=== PATIENT | female | born 1985 | race Two or more races ===

== ENCOUNTER 2019-03-28 20:12 | Inpatient (IN) | payer OTHER ==
[~2019-03-28] VITALS: Ht 165.1 cm; Wt 167.0 kg
[2019-03-28] MEDS ORDERED: PRENATABS RX T1 EACH PO (20:34)
== END 2019-03-30 13:14 | disposition home or self-care (01) | DRG 807 ==
LOC: OB/GYN 20:12 → LDR 20:12 → OB/GYN 23:50
PROVIDERS: ADMIT Specialist
PROC: 10E0XZZ Delivery of Products of Conception, External Approach (ICD-10-PCS; principal; 2019-03-28)
PROC: 0HQ9XZZ Repair Perineum Skin, External Approach (ICD-10-PCS; 2019-03-28)
PROC: 10907ZC Drainage of Amniotic Fluid, Therapeutic from Products of Conception, Via Natural or Artificial Opening (ICD-10-PCS; 2019-03-28)
PROC: 4A1HXCZ Monitoring of Products of Conception, Cardiac Rate, External Approach (ICD-10-PCS; 2019-03-28)
DX: O70.0 First degree perineal laceration during delivery (principal); Z37.0 Single live birth; Z3A.38 38 weeks gestation of pregnancy